=== PATIENT | female | born 1980 | race Native Hawaiian/Other Pacific Islander ===

== ENCOUNTER 2023-12-03 21:40 | Emergency (ER) | payer BC ==
[~2023-12-03] VITALS: Ht 157.5 cm; Wt 78.5 kg
[2023-12-03] MEDS ORDERED: KETOROLAC 10 MG TAB PO ONE ×2 (23:49→23:54)
[2023-12-04] MEDS ORDERED: KETOROLAC 10 MG TAB PO ONE ×2 (00:13→00:14)
[2023-12-04 01:35] VITALS: BP 150/88; TEMP 97.8
== END 2023-12-04 01:35 | disposition home or self-care (01) ==
LOC: ED 21:40
DX: S90.31XA Contusion of right foot, initial encounter (principal); W22.8XXA Striking against or struck by other objects, initial encounter
CPT/HCPCS: 99283